=== PATIENT | male | born 1955 | race Caucasian/White ===

== ENCOUNTER 2016-07-07 07:48 | Day surgery (SDC) | payer MEDICARE, OTHER ==
[2016-07-07 08:20] VITALS: BMI 29.2
[2016-07-07 08:34] VITALS: O2SAT 100
[2016-07-07] MEDS ORDERED: Propofol 10 mg/ml Inj (20 ML) ONE (09:51)
--- NOTE | 2016-07-07 09:55 | CP.SDSHP ---
Same Day Surgery H & P - History Proposed Procedure: EGD/COLONSCOPY Pre-Op Diagnosis: SEE NOTES - Previous Medical/Surgical History Cardiac: Hypertension Endocrine/Metabolic: Diabetes, Other Misc: Other Pain: 4.Moderate Pain Previous Surgical History: COLON POLYPS - Allergies Allergies: Allergies acetaminophen [From Percocet] Allergy (Verified 04/11/15 16:02) RASH oxycodone HCl [From Percocet] Allergy (Verified 04/11/15 16:02) RASH - Physical Exam General Appearance: N Vital Signs: Vital Signs 07/07/16 08:24 Temperature 97.1 F L Pulse Rate 61 Respiratory 15 Rate Blood Pressure 144/62 O2 Sat by Pulse 100 Oximetry Mental Status: Alert & Oriented x3 Neuro: WNL Heart: Other Lungs: WNL GI: WNL - {Optional Preform as Required} Breast: WNL Abdomen: Other Rectal: Other Integument: WNL : WNL Ortho: Other ENT: WNL - Impression Pt. Evaluated Today:Candidate for Anesthesia & Procedure: Yes - Date & Time Time: 09:55 Short Stay Discharge - Short Stay Discharge Admitting Diagnosis/Reason for Visit: DYSPEPSIA / COLON POLYP Disposition: HOME/ ROUTINE
[2016-07-07] MEDS ORDERED: Belladonna-Phenobarbital PO STA ×2 (09:56→11:41)
[2016-07-07] MEDS ORDERED: Lactated Ringer's 500 ML IV ONE ×2 (10:03)
[2016-07-07 13:40] VITALS: BP 125/55; PULSE 55; RESP 16; TEMP 97.9
== END 2016-07-07 12:30 | disposition home or self-care (01) ==
LOC: C.ENDO 07:48
PROVIDERS: ATTEND Specialist
DX: K29.00 Acute gastritis without bleeding (principal); D12.2 Benign neoplasm of ascending colon; D12.4 Benign neoplasm of descending colon; K44.9 Diaphragmatic hernia without obstruction or gangrene; K29.80 Duodenitis without bleeding; K58.9 Irritable bowel syndrome, unspecified; K64.8 Other hemorrhoids; K64.4 Residual hemorrhoidal skin tags; K63.89 Other specified diseases of intestine
CPT/HCPCS: 43239; 45380; 82948; 88305; 88342; J2001; J2704; J3010; J7120

== ENCOUNTER 2017-06-28 09:08 | Emergency (ER) | payer MEDICARE, OTHER ==
[2017-06-28 09:08] VITALS: BMI 29.2
[2017-06-28 09:21] VITALS: O2SAT 96
--- NOTE | 2017-06-28 10:14 | RAD ---
PROCEDURE: Radiographs of the Chest and Right Ribs. HISTORY: R rib pain after fall COMPARISON: None available. TECHNIQUE: Frontal radiograph of the chest and multiple oblique radiographs of the right ribs were obtained. FINDINGS: RIGHT RIBS: No fracture or focal lesion visualized. LUNGS: Clear. PLEURA: No pneumothorax or pleural fluid. CARDIOVASCULAR: Normal sized heart. No pulmonary vascular congestion. OTHER FINDINGS: None. IMPRESSION: Unremarkable radiographs of the chest and right ribs. No right rib fracture.
--- NOTE | 2017-06-28 10:17 | C.PDOC ---
History Of Present Illness Patient is a 61 y/o M presenting with R rib pain. He reports that he was walking downstairs yesterday when he missed an uneven stair and fell down 2 stairs hitting his R chest wall. Denies head trauma or LOC. Denies anticoagulant use. Reports talking tramadol with some relief. Presents to the ED today to r/o fracture. Denies shortness of breath. Denies abdominal pain, nausea/vomiting, headache. Time Seen by Provider: 06/28/17 09:31 Chief Complaint (Nursing): Rib Injury Past Medical History Vital Signs: Last Vital Signs Temp 97.9 F 06/28/17 10:23 Pulse 63 06/28/17 10:23 Resp 16 06/28/17 10:23 BP 128/73 06/28/17 10:23 Pulse Ox 96 06/28/17 10:23 - Medical History PMH: Diabetes, HTN, Hypercholesterolemia Denies: Chronic Kidney Disease Surgical History: Coronary Stent (x8) - [facility] Procedures CLOSED ENDOSCOPIC BIOPSY OF LARGE INTESTINE (11/20/14) ESOPHAGOGASTRODUODENOSCOPY [EGD] W/CLOSED BIOPSY (11/15/14) TRANSURETHRAL PROSTATECTOMY ([place]) (01/05/13) Family History: States: Unknown Family Hx - Social History Hx Tobacco Use: No Hx Alcohol Use: No Hx Substance Use: No - Immunization History Hx Tetanus Toxoid Vaccination: Yes Hx Influenza Vaccination: Yes Hx Pneumococcal Vaccination: Yes Review Of Systems Constitutional: Negative for: Fever, Chills Eyes: Negative for: Pain, Vision Change Cardiovascular: Positive for: Chest Pain (R bony rib pain). Negative for: Palpitations, Orthopnea, Edema, Light Headedness Respiratory: Negative for: Cough, Shortness of Breath, Hemoptysis, SOB with Excertion, Pleuritic Pain, Wheezing Gastrointestinal: Negative for: Nausea, Vomiting, Abdominal Pain, Diarrhea, Constipation Musculoskeletal: Negative for: Neck Pain Neurological: Negative for: Weakness, Numbness, Confusion, Seizures, Altered Mental Status, Headache Physical Exam - Physical Exam Appears: Well, Non-toxic, No Acute Distress Skin: Normal Color, Warm, Dry Head: Atraumatic, Normacephalic Eye(s): bilateral: Normal Inspection, PERRL, EOMI Neck: No Midline Cervical Tenderness, Supple Chest: Symmetrical, Tenderness (R bony rib tenderness), No Ecchymosis, No Subcutaneous Emphysema Cardiovascular: Rhythm Regular Respiratory: Normal Breath Sounds, No Decreased Breath Sounds, No Accessory Muscle Use, No Rales, No Rhonchi, No Wheezing Gastrointestinal/Abdominal: Soft, No Tenderness, No Mass, No Distention Back: Normal Inspection, No CVA Tenderness, No Vertebral Tenderness Extremity: Normal ROM Neurological/Psych: Oriented x3, Normal Speech, Normal Cranial Nerves Gait: Steady ED Course And Treatment O2 Sat by Pulse Oximetry: 96 Progress Note: Patient given pain medication and xray ordered. Rib xray negative for fracture. Refusing percocet but reporting pain improved after motrin. Normal o2 saturation. Ambulating around ED without issue. Disposition - Disposition Disposition: HOME/ ROUTINE Disposition Time: 10:18 Condition: GOOD Additional Instructions: Follow-up with PMD within 2 days. Motrin for pain. Return to ED if condition worsens. Instructions: Contusion (DC), Bruised Rib Forms: [employer] (Jamaican) Print Language: IRANIAN - Clinical Impression Clinical Impression: Contusion of rib on right side
[2017-06-28 10:24] VITALS: BP 128/73; PULSE 63; RESP 16; TEMP 97.9
== END 2017-06-28 10:27 | disposition home or self-care (01) ==
LOC: C.ER 09:08
DX: S20.211A Contusion of right front wall of thorax, initial encounter (principal); W10.9XXA Fall (on) (from) unspecified stairs and steps, initial encounter; Y92.9 Unspecified place or not applicable